=== PATIENT | female | born 1960 | race Asian ===

== ENCOUNTER 2019-02-27 10:17 | Emergency (ER) | payer OTHER ==
[~2019-02-27] VITALS: Ht 165.1 cm; Wt 58.1 kg
[2019-02-27 10:32] VITALS: Ht 165.1 cm; Wt 58.1 kg
[2019-02-27 13:19] LABS: microscopic required? NO
[2019-02-27 13:31] LABS: BASOPHIL % 0.6 % (0-2); PLATELET COUNT 258 x10^3mcL (130-400)
[2019-02-27 13:43] LABS: CALCIUM 9.2 mg/dL (8.5-10.1); CARBON DIOXIDE 29.3 mmol/L (21-32); CHLORIDE SERUM 101 mmol/L (98-107); CREATININE SERUM 0.6 mg/dL (0.6-1.0); GFR1 > 60 mL/min; GLUCOSE SERUM 96 mg/dL (74-106); POTASSIUM SERUM 4.3 mmol/L (3.5-5.1); SODIUM SERUM 137 mmol/L (136-145)
[2019-02-27 13:55] LABS: ALBUMIN 3.7 g/dL (3.4-5.0); ALKALINE PHOSPHATASE 109 U/L (46-116); ALT/SGPT 31 U/L (14-59); AST/SGOT 19 U/L (15-37); BILIRUBIN TOTAL 0.2 mg/dL (0.20-1.00); HDL CHOLESTEROL 43 mg/dL (40-60); LIPASE 163 IU/L (73-393); T4(THYROXINE) 9.6 ug/dL (4.7-13.3)
[2019-02-27 13:56] LABS: CHOLESTEROL 221 mg/dL (<200); CHOLESTEROL/HDL RATIO 5.1; TOTAL PROTEIN, SERUM 8.3 g/dL (6.4-8.2); TRIGLYCERIDES 364 mg/dL (<150)
[2019-02-27 14:04] LABS: UA SPECIFIC GRAVITY <=1.005 (1.005-1.035); urine erythrocyte NEGATIVE (NEGATIVE)
[2019-02-27 18:38] VITALS: BP 131/83
== END 2019-02-27 18:38 | disposition home or self-care (01) ==
LOC: ED 10:17
PROVIDERS: Emergency Medicine
DX: J98.01 Acute bronchospasm (principal); R91.1 Solitary pulmonary nodule; J92.9 Pleural plaque without asbestos; R59.1 Generalized enlarged lymph nodes; R04.2 Hemoptysis; E78.00 Pure hypercholesterolemia, unspecified; E78.1 Pure hyperglyceridemia
CPT/HCPCS: 82962; 86308; 87804; J1885; J2930; J7030; J7613; J7644; Q9967